=== PATIENT | female | born 1975 | race Caucasian/White ===

== ENCOUNTER 2022-10-27 23:30 | Emergency (ER) | payer OTHER ==
[~2022-10-27] VITALS: Ht 177.8 cm; Wt 74.8 kg
[2022-10-28] MEDS ORDERED: ONDANSETRON HCL/PF 4 MG/2 ML VIAL IVP ONE (00:30)
[2022-10-28] MEDS ORDERED: IV NS 0.9% 500 ML BAG IV ONE (00:30)
[2022-10-28] MEDS ORDERED: MORPHINE SULFATE INJ 2 MG/ML DISP.SYRIN IV ONE (00:30)
[2022-10-28] MEDS ORDERED: MORPHINE SULFATE INJ 4 MG/ML DISP.SYRIN ONE (00:38)
[2022-10-28] MEDS ORDERED: ONDANSETRON HCL/PF 4 MG/2 ML VIAL ONE (00:38)
--- NOTE | 2022-10-28 01:00 | NUR ---
Pt is noted came from Home C/O RUQ Abdominal due to S/P Liver BX Yesterday with history off METS Breast CA. Pt care continue with MD at bedside.
--- NOTE | 2022-10-28 01:10 | NUR ---
Pt care continue as she is been Medicated as ordered after Lab work done.
[2022-10-28 01:15] LABS: BASOPHILS % (AUTO) 0.3 % (0.0-2.0); HEMATOCRIT 38 % (33-45); HEMOGLOBIN 12.4 g/dL (11.5-14.8); LYMPHOCYTES % (AUTO) 9.9 % (20.0-44.0); MEAN CORPUSCULAR HGB CONC 33 g/dl (31.0-36.0); MEAN CORPUSCULAR VOLUME 99 fL (82-100); MONOCYTES % (AUTO) 10.1 % (2.0-12.0); NEUTROPHILS # (AUTO) 7.6 K/uL (1.8-8.9); NEUTROPHILS % (AUTO) 78.7 % (43.0-81.0); PLATELET COUNT (AUTO) 241 K/uL (150-450); RED BLOOD CELL COUNT(AUTO) 3.83 MIL/uL (4.0-5.2); WHITE BLOOD COUNT (AUTO) 9.6 K/uL (4.3-11.0)
[2022-10-28 01:25] LABS: CALCIUM, SERUM 9.9 mg/dL (8.5-10.1); CARBON DIOXIDE 24 mmol/L (21-32); CHLORIDE 102 mmol/L (98-107); CREATININE 0.8 mg/dL (0.6-1.3); GLUCOSE 125 mg/dL (74-106); POTASSIUM 3.7 mmol/L (3.5-5.1); SODIUM SERUM 135 mmol/L (136-145); UREA NITROGEN, BLOOD 9 mg/dL (7-18)
[2022-10-28 01:32] LABS: ALANINE AMINOTRANSFERASE 75 U/L (12-78); ALBUMIN 4.1 g/dL (3.4-5.0); ALKALINE PHOSPHATASE 118 U/L (46-116); ASPARTATE AMINOTRANSFERASE 67 U/L (15-37); BILIRUBIN,DIRECT 0.2 mg/dL (0.0-0.2); BILIRUBIN,TOTAL 0.7 mg/dL (0.2-1.0); LIPASE 141 U/L (73-393); TOTAL PROTEIN, SERUM 8.3 g/dL (6.4-8.2)
--- NOTE | 2022-10-28 02:30 | NUR ---
Pt is noted off the unit to CT. Pt care continue.
--- NOTE | 2022-10-28 03:20 | NUR ---
Pty is noted back from CT. Pt care continue as she is been monitor closely
--- NOTE | 2022-10-28 04:22 | NUR ---
Pt is noted off the unit as she is been discharge to home with all discharge instructions given with no S/S off distress or C/O Pain.
[2022-10-28 04:23] VITALS: BP 119/72
== END 2022-10-28 04:24 | disposition home or self-care (01) ==
LOC: ER 23:34
DX: R10.11 Right upper quadrant pain (principal); G89.18 Other acute postprocedural pain; Z60.2 Problems related to living alone
CPT/HCPCS: 99285; 74176; 96374; 76705; 96361; 96375; 93005; 85025; 80048; 83690; 80076; 36415; 84484 ×2; 85730; J2270; J2405; J7030

== ENCOUNTER 2024-07-01 12:21 | Emergency (ER) | payer OTHER ==
[~2024-07-01] VITALS: Ht 177.8 cm; Wt 84.8 kg
[2024-07-01] MEDS ORDERED: CT SWABBABLE VALVE TRANS SET 1 EA INFUS.SET MC ONE (12:38)
[2024-07-01] MEDS ORDERED: IV NS 0.9% 250 ML IV ONE (12:38)
[2024-07-01] MEDS ORDERED: IOHEXOL-350 100 ML VIAL IV ONE (12:38)
[2024-07-01 12:48] LABS: EOSINOPHILS # (AUTO) 0.2 K/uL (0.0-0.7); EOSINOPHILS % (AUTO) 6.4 % (0.0-6.0); HEMATOCRIT 29 % (33-45); HEMOGLOBIN 9.6 g/dL (11.5-14.8); LYMPHOCYTES # (AUTO) 0.9 K/uL (0.8-4.8); LYMPHOCYTES % (AUTO) 29.1 % (20.0-44.0); MEAN CORPUSCULAR HEMOGLOBIN 29 PG (26.0-33.0); MEAN CORPUSCULAR HGB CONC 33 g/dl (31.0-36.0); MEAN CORPUSCULAR VOLUME 88 fL (82-100); MONOCYTES # (AUTO) 0.2 K/uL (0.1-1.30); MONOCYTES % (AUTO) 6.1 % (2.0-12.0); NEUTROPHILS # (AUTO) 1.8 K/uL (1.8-8.9); NEUTROPHILS % (AUTO) 57.4 % (43.0-81.0); PLATELET COUNT (AUTO) 227 K/uL (150-450); RED BLOOD CELL COUNT(AUTO) 3.28 MIL/uL (4.0-5.2); RED CELL DISTRIBUTION WIDTH 20.2 % (11.5-15.0); WHITE BLOOD COUNT (AUTO) 3.1 K/uL (4.3-11.0)
[2024-07-01 12:50] LABS: CALCIUM, SERUM 9.2 mg/dL (8.5-10.1); CREATININE 0.8 mg/dL (0.6-1.3); POTASSIUM 4.7 mmol/L (3.5-5.1)
[2024-07-01 12:55] LABS: INR 1.04 (0.91-1.10); PARTIAL THROMBOPLASTIN TIME 25.8 SEC (24.3-34.3)
[2024-07-01 12:56] LABS: ALBUMIN 3.8 g/dL (3.4-5.0); BILIRUBIN,DIRECT 0.2 mg/dL (0.0-0.2); BILIRUBIN,TOTAL 0.6 mg/dL (0.2-1.0); TOTAL PROTEIN, SERUM 7.2 g/dL (6.4-8.2)
[2024-07-01] MEDS: LEVETIRACETAM (500MG) 1,000 MG in IV NS 0.9% 90 ML IV SCH (13:22)
[2024-07-01] MEDS: dexaMETHasone SOD PHOSPHATE 10 MG/ML VIAL IV ONE (13:22)
[2024-07-01 14:44] LABS: APPEARANCE,URINE CLEAR (CLEAR); BILIRUBIN,URINE NEGATIVE (NEGATIVE); BLOOD, URINE NEGATIVE Ery/uL (NEGATIVE); COLOR,URINE YELLOW (YELLOW); KETONES,URINE NEGATIVE (NEGATIVE); LEUKOCYTE ESTERASE ,URINE NEGATIVE (NEGATIVE); NITRITE, URINE NEGATIVE (NEGATIVE); PROTEIN,URINE NEGATIVE (NEGATIVE); UGLUCOSE NEGATIVE (NEGATIVE); UROBILINOGEN,URINE 0.2 EU/dL (0.2)
[2024-07-01 15:00] LABS: AMPHETAMINE, URINE NEGATIVE (NEGATIVE); BARBITURATE, URINE NEGATIVE (NEGATIVE); BENZODIAZEPINE, URINE NEGATIVE (NEGATIVE); COCCAINE, URINE NEGATIVE (NEGATIVE); OPIATE, URINE NEGATIVE (NEGATIVE); PHENCYCLIDINE SCREEN,URINE NEGATIVE (NEGATIVE)
[2024-07-01 15:08] LABS: CANNABINOID, URINE NEGATIVE (NEGATIVE)
[2024-07-02] MEDS ORDERED: ALPRAZOLAM 0.25 MG TABLET ONE (00:24)
[2024-07-02] MEDS: ALPRAZOLAM 0.25 MG TABLET PO ONE (00:28)
[2024-07-02 09:07] VITALS: BP 122/70; TEMP 98; O2SAT 97
== END 2024-07-02 09:07 | disposition left against medical advice (07) ==
LOC: ER 12:23
DX: C50.919 Malignant neoplasm of unspecified site of unspecified female breast (principal); G45.9 Transient cerebral ischemic attack, unspecified; Z85.3 Personal history of malignant neoplasm of breast; Z20.822 Contact with and (suspected) exposure to COVID-19
CPT/HCPCS: 99291; 70498; 87426; 93005; 71045; 70496; 85025; 80048; 80076; 36415; 85730; 86850; 82962; 80307; 96365; 96375; 70450; 81003; J1100; J7030; J7050; J1953; Q9967

== ENCOUNTER 2025-01-05 17:08 | Inpatient (IN) | payer OTHER ==
[~2025-01-05] VITALS: Ht 177.8 cm; Wt 82.6 kg
[2025-01-05] MEDS: IV NS 0.9% 1,000 ML BAG IV ONE ×2 (18:00→18:23)
[2025-01-05] MEDS ORDERED: ONDANSETRON HCL/PF 4 MG/2 ML VIAL ONE (18:02)
[2025-01-05] MEDS ORDERED: MORPHINE SULFATE INJ 4 MG/ML DISP.SYRIN ONE (18:02)
[2025-01-05] MEDS ORDERED: IBUPROFEN 600 MG TABLET ONE ×2 (18:02→18:16)
[2025-01-05] MEDS: MORPHINE SULFATE INJ 2 MG/ML DISP.SYRIN IV ONE (18:05)
[2025-01-05] MEDS: ONDANSETRON HCL/PF 4 MG/2 ML VIAL IVP ONE (18:24)
[2025-01-05] MEDS: IBUPROFEN 600 MG TABLET PO ONE (18:24)
[2025-01-05] MEDS: ACETAMINOPHEN ES 500 MG TABLET PO ONE (18:25)
[2025-01-05] MEDS ORDERED: KETOROLAC TROMETHAMINE 15 MG/ML VIAL ONE (18:28)
[2025-01-05 18:30] LABS: CALCIUM, SERUM 8.4 mg/dL (8.5-10.1); CREATININE 1.2 mg/dL (0.6-1.3); SODIUM SERUM 123.0 mmol/L (136-145); UREA NITROGEN, BLOOD 20.0 mg/dL (7-18)
[2025-01-05] MEDS: KETOROLAC TROMETHAMINE 15 MG/ML VIAL IV ONE (18:35)
[2025-01-05 18:36] LABS: ASPARTATE AMINOTRANSFERASE 213.0 U/L (15-37); TOTAL PROTEIN, SERUM 6.7 g/dL (6.4-8.2)
[2025-01-05 18:52] LABS: PLATELET COUNT (AUTO) 150 K/uL (150-450); RED BLOOD CELL COUNT(AUTO) 2.41 MIL/uL (4.0-5.2); RED CELL DISTRIBUTION WIDTH 19.5 % (11.5-15.0)
[2025-01-05 18:54] LABS: LACTIC ACID 3.0 mmol/L (0.4-2.0)
[2025-01-05 18:55] LABS: INR 1.21 (0.91-1.10)
[2025-01-05 18:55] LABS: WHITE BLOOD COUNT (AUTO) 0.5 K/uL (4.3-11.0)
[2025-01-05] MEDS ORDERED: MAGN200T4 PO (19:39)
[2025-01-05] MEDS ORDERED: CHOL100062 PO (19:39)
[2025-01-05] MEDS ORDERED: BLOO-668 IN (19:39)
[2025-01-05] MEDS ORDERED: MEMA5TAB42 PO (19:39)
[2025-01-05] MEDS ORDERED: L. A1TAB10 PO (19:39)
[2025-01-05] MEDS ORDERED: LOPE2TAB25 PO (19:39)
[2025-01-05] MEDS ORDERED: ZINC220C6 PO (19:39)
[2025-01-05] MEDS ORDERED: LIDO1KIT TP (19:39)
[2025-01-05] MEDS ORDERED: OLAN2.5T3 PO ×2 (19:39)
[2025-01-05] MEDS ORDERED: CIME400T PO (19:39)
[2025-01-05] MEDS ORDERED: [UNRECOGNIZED DRUG - OTHER] PO (19:39)
[2025-01-05] MEDS ORDERED: POLY17PO4 PO (19:39)
[2025-01-05] MEDS ORDERED: LACO100T2 PO (19:39)
[2025-01-05] MEDS ORDERED: ESCI5TAB PO (19:39)
[2025-01-05] MEDS ORDERED: ONDA8TAB65 PO (19:39)
[2025-01-05] MEDS ORDERED: CETI10TA14 PO (19:39)
[2025-01-05] MEDS ORDERED: LEVE100023 PO (19:39)
[2025-01-05] MEDS ORDERED: LEVOFLOXACIN 750 MG /D5W 150ML 150 ML IV ONE (19:55)
[2025-01-05] MEDS ORDERED: MAG HYDROX/AL HYDROX/SIMETH 30 ML UDC PO PRN (20:00)
[2025-01-05] MEDS ORDERED: LEVOFLOXACIN 750 MG /D5W 150ML 750 MG in PREMIX 1 EA IV ONE (20:00)
[2025-01-05] MEDS ORDERED: ONDANSETRON HCL/PF 4 MG/2 ML VIAL IVP PRN (20:00)
[2025-01-05] MEDS ORDERED: Z GUARD REMEDY 4 OZ OINT TP PRN (20:00)
[2025-01-05] MEDS ORDERED: DOSING PER PHARMACY-VANCOMYCIN IV XX PRN (20:00)
[2025-01-05] MEDS ORDERED: MAGNESIUM HYDROXIDE 30 ML UDC PO PRN (20:00)
[2025-01-05] MEDS ORDERED: LEVOFLOXACIN 750 MG /D5W 150ML 750 MG in PREMIX 1 EA IV SCH (20:00)
[2025-01-05] MEDS: LEVOFLOXACIN 750 MG /D5W 150ML PIGGYBACK IV ONE (20:06)
[2025-01-05] MEDS ORDERED: FLUCONAZOLE IN NS 100 ML IV ONE (20:31)
[2025-01-05] MEDS: FLUCONAZOLE IN NS 100 MG in PREMIX 1 EA IV SCH (20:40)
[2025-01-05 21:00] VITALS: BP 132/71; TEMP 98.2; O2SAT 100
[2025-01-05] MEDS ORDERED: FUROSEMIDE 20 MG/2 ML VIAL IV SCH (21:00)
[2025-01-05] MEDS ORDERED: TEMAZEPAM 7.5 MG CAPSULE PO PRN (21:00)
[2025-01-05] MEDS: PANTOPRAZOLE 40 MG VIAL IV SCH (22:13)
[2025-01-05] MEDS: VANCOMYCIN 1 GM /D5W 250 ML PB IV ONE (22:27)
[2025-01-05] MEDS: VANCOMYCIN HCL 1.25 GM in IV D5W 250 ML IV ONE (22:40)
[2025-01-05 22:44] LABS: LYMPHOCYTES % (MANUAL) 10 % (16-48); MONOCYTES % (MANUAL) 12 % (0-11.0); MYELOCYTES % 1 % (0-0); NEUTROPHILS % (MANUAL) 2 (42-76); PLATELET ESTIMATE ADEQUATE
[2025-01-05] MEDS: HYDROMORPHONE 1 MG/1 ML DISP.SYRIN IV PRN (22:57)
[2025-01-05] MEDS ORDERED: VANCOMYCIN 500 MG VIAL ONE (23:11)
[2025-01-06] VITALS (7 sets, daily range): BP systolic 116–155; BP diastolic 62–92; TEMP 97.7–99.3; O2SAT 92–100
[2025-01-06] MEDS ORDERED: ONDANSETRON HCL/PF 4 MG/2 ML VIAL IVP PRN
[2025-01-06] MEDS ORDERED: LOPERAMIDE HCL (2 MG CAP) 2 MG CAPSULE PO PRN (01:30)
[2025-01-06 08:04] LABS: PLATELET COUNT (AUTO) 159 K/uL (150-450); RED BLOOD CELL COUNT(AUTO) 2.28 MIL/uL (4.0-5.2); RED CELL DISTRIBUTION WIDTH 19.0 % (11.5-15.0)
[2025-01-06 08:12] LABS: WHITE BLOOD COUNT (AUTO) 0.7 K/uL (4.3-11.0)
[2025-01-06 08:42] LABS: PLATELET ESTIMATE ADEQUATE
[2025-01-06 09:09] LABS: CALCIUM, SERUM 8.0 mg/dL (8.5-10.1); CREATININE 1.2 mg/dL (0.6-1.3); PHOSPHORUS 3.0 mg/dL (2.5-4.9); SODIUM SERUM 124.0 mmol/L (136-145); UREA NITROGEN, BLOOD 19.0 mg/dL (7-18)
[2025-01-06] MEDS: cetrizine 10 MG TABLET PO SCH (09:14)
[2025-01-06] MEDS: ESCITALOPRAM OXALATE (10 MG) 10 MG TABLET PO SCH (09:14)
[2025-01-06] MEDS: FUROSEMIDE 40 MG/4 ML VIAL IV SCH (09:14)
[2025-01-06] MEDS: FAMOTIDINE (20 MG) 20 MG TABLET PO SCH (09:15)
[2025-01-06] MEDS: ACIDOPHILUS/BULGARICUS 1 EACH TAB.CHEW PO SCH (09:15)
[2025-01-06] MEDS: LEVETIRACETAM (250 MG) 250 MG TABLET PO SCH ×2 (09:15→17:19)
[2025-01-06] MEDS: MEMANTINE HCL 5 MG TABLET PO SCH (09:15)
[2025-01-06] MEDS: POLYETHYLENE GLYCOL 3350 17 GM POWD.PACK PO SCH (09:15)
[2025-01-06] MEDS: OLANZAPINE 2.5 MG TABLET PO SCH (09:15)
[2025-01-06] MEDS: VANCOMYCIN 500 MG in IV D5W 100ml IV ONE (09:44)
[2025-01-06] MEDS ORDERED: IOHEXOL-300 100 ML VIAL IV ONE (11:38)
[2025-01-06] MEDS ORDERED: IV NS 0.9% 250 ML IV ONE (11:38)
[2025-01-06 13:35] LABS: PREGNANCY TEST URINE QUAL NEGATIVE (NEGATIVE)
[2025-01-06] MEDS: LACOSAMIDE 50 MG TABLET PO SCH ×2 (16:55→17:19)
[2025-01-06] MEDS: LEVOFLOXACIN 750 MG /D5W 150ML 750 MG in PREMIX 1 EA IV SCH (19:35)
[2025-01-06] MEDS: NYSTATIN (PYXIS) 500,000 UNIT/5 ML ORAL.SUSP PO SCH (21:09)
[2025-01-06] MEDS: FLUCONAZOLE IN NS 100 MG in PREMIX 1 EA IV SCH (21:42)
[2025-01-06] MEDS: VANCOMYCIN 1 GM in IV D5W 250ml IV SCH (22:15)
[2025-01-07 00:24] VITALS: BP 134/86; TEMP 99; O2SAT 95
[2025-01-07] MEDS: LORAZEPAM 1 MG TABLET PO ONE (03:57)
[2025-01-07 04:04] VITALS: BP 130/73; TEMP 97.7; O2SAT 99
[2025-01-07 08:00] VITALS: BP 121/82; TEMP 98; O2SAT 96
[2025-01-07] MEDS: SODIUM CHLORIDE 1000 MG TABLET PO SCH (10:45)
[2025-01-07 11:30] VITALS: BP 154/76; TEMP 97.9; O2SAT 96
[2025-01-07] MEDS: PANTOPRAZOLE 40 MG TABLET.DR PO SCH (11:43)
[2025-01-07] MEDS ORDERED: LIDOCAINE VISCOUS 2% UD 15 ML UDC MM PRN (13:00)
[2025-01-07] MEDS ORDERED: TEMAZEPAM 15 MG CAPSULE PO PRN (13:00)
[2025-01-07] MEDS: TBO-FILGRASTIM 480 MCG/0.8 ML ML SQ SCH (14:05)
[2025-01-07 16:00] VITALS: BP 137/80; TEMP 98.6; O2SAT 98
[2025-01-07 18:03] LABS: PLATELET COUNT (AUTO) 217 K/uL (150-450); RED BLOOD CELL COUNT(AUTO) 2.29 MIL/uL (4.0-5.2); RED CELL DISTRIBUTION WIDTH 19.3 % (11.5-15.0)
[2025-01-07 18:07] LABS: WHITE BLOOD COUNT (AUTO) 1.1 K/uL (4.3-11.0)
[2025-01-07 18:12] LABS: RHEUMATOID FACTOR SCREEN NEGATIVE (NEGATIVE)
[2025-01-07 18:27] LABS: CALCIUM, SERUM 7.9 mg/dL (8.5-10.1); CREATININE 1.6 mg/dL (0.6-1.3); SODIUM SERUM 121.0 mmol/L (136-145); UREA NITROGEN, BLOOD 26.0 mg/dL (7-18)
[2025-01-07 18:34] LABS: ASPARTATE AMINOTRANSFERASE 123.0 U/L (15-37); TOTAL PROTEIN, SERUM 6.2 g/dL (6.4-8.2)
[2025-01-07 18:39] LABS: IRON, SERUM 18.0 ug/dl (50-175)
[2025-01-07 18:59] LABS: INR 1.27 (0.91-1.10)
[2025-01-07 19:34] LABS: LYMPHOCYTES % (MANUAL) 49 % (16-48); METAMYELOCYTES % 7 % (0-0); MONOCYTES % (MANUAL) 12 % (0-11.0); MYELOCYTES % 1 % (0-0); NEUTROPHILS % (MANUAL) 21 (42-76); REACTIVE LYMPHOCYTES 10 % (0-0)
[2025-01-07 19:35] LABS: PLATELET ESTIMATE ADEQUATE
[2025-01-07 20:25] VITALS: BP 109/67; TEMP 99; O2SAT 98
[2025-01-07] MEDS: VANCOMYCIN 750 MG in IV D5W 250 ML IV SCH (23:13)
[2025-01-07 23:19] LABS: HIV-1/2 ANTIBODY NON REACTIVE (NONREACTIVE)
[2025-01-08 02:32] LABS: FIBRINOGEN ACTIVITY 459.0 Mg/dL (213-485)
[2025-01-08 04:18] VITALS: BP 117/64; TEMP 99; O2SAT 99
[2025-01-08 07:27] LABS: CALCIUM, SERUM 8.4 mg/dL (8.5-10.1); CREATININE 1.9 mg/dL (0.6-1.3); PHOSPHORUS 2.8 mg/dL (2.5-4.9); SODIUM SERUM 125.0 mmol/L (136-145); UREA NITROGEN, BLOOD 28.0 mg/dL (7-18)
[2025-01-08 07:46] LABS: APPEARANCE,URINE CLEAR (CLEAR); BLOOD, URINE 1+ Ery/uL (NEGATIVE); LEUKOCYTE ESTERASE ,URINE NEGATIVE (NEGATIVE); NITRITE, URINE NEGATIVE (NEGATIVE); UGLUCOSE NEGATIVE (NEGATIVE)
[2025-01-08 07:46] LABS: PLATELET COUNT (AUTO) 212 K/uL (150-450); RED BLOOD CELL COUNT(AUTO) 2.32 MIL/uL (4.0-5.2); RED CELL DISTRIBUTION WIDTH 20.8 % (11.5-15.0)
[2025-01-08 07:55] LABS: CREATININE, URINE 79.5 MG/DL (30.0-125.0); URINE SODIUM, RANDOM < 5 mmol/l (40-220); URINE TOTAL PROTEIN 65.2 mg/dL (0-11.9)
[2025-01-08 08:00] VITALS: BP 119/55; TEMP 99; O2SAT 100
[2025-01-08 08:22] LABS: WHITE BLOOD COUNT (AUTO) 1.4 K/uL (4.3-11.0)
[2025-01-08 08:46] LABS: ADD URINE CULTURE NO; COARSE GRANULAR CASTS,URINE Rare /LPF (None Seen); SQUAMOUS EPITHELIAL CELL,UR 0-2 /HPF (None Seen)
[2025-01-08 09:17] LABS: INR 1.32 (0.91-1.10)
[2025-01-08] MEDS: ALBUMIN 25% 25 GM in PREMIX 1 EA IV SCH (10:52)
[2025-01-08 12:00] VITALS: BP 121/53; TEMP 98.2; O2SAT 96
[2025-01-08 12:20] LABS: FIBRINOGEN ACTIVITY 486.0 Mg/dL (213-485)
[2025-01-08 13:16] LABS: EOSINOPHIL,URINE None Seen
[2025-01-08 14:33] LABS: LYMPHOCYTES % (MANUAL) 16 % (16-48); MONOCYTES % (MANUAL) 71 % (0-11.0); NEUTROPHILS % (MANUAL) 13 (42-76); PLATELET ESTIMATE ADEQUATE
[2025-01-08 16:00] VITALS: BP 139/64; TEMP 98.1; O2SAT 99
[2025-01-08 20:00] VITALS: BP 145/78; TEMP 98.1; O2SAT 99
[2025-01-08] MEDS: LEVETIRACETAM (500MG) 750 MG in IV NS 0.9% 100 ML IV SCH (21:03)
[2025-01-09] VITALS: BP 153/84; TEMP 98.8; O2SAT 96
[2025-01-09 04:00] VITALS: BP 146/79; TEMP 98.5; O2SAT 97
[2025-01-09 04:07] LABS: HEPATITIS B SURFACE AB (QUAL) Reactive (.)
[2025-01-09 05:08] LABS: CANCER AG, 15-3 174.0 U/mL (0.0-25.0); CARCINOEMBRYONIC ANTIGEN (CEA) 1517.0 ng/mL (0.0-4.7)
[2025-01-09 07:07] LABS: IMMUNOGLOBULIN A, SERUM 211 mg/dL (87-352); IMMUNOGLOBULIN M, SERUM 37 mg/dL (26-217)
[2025-01-09 07:30] VITALS: BP 146/64; TEMP 98.2; O2SAT 96
[2025-01-09 07:37] LABS: PLATELET COUNT (AUTO) 189 K/uL (150-450); RED CELL DISTRIBUTION WIDTH 19.6 % (11.5-15.0); WHITE BLOOD COUNT (AUTO) 2.8 K/uL (4.3-11.0)
[2025-01-09 08:07] LABS: FOLIC ACID 4.5 ng/mL (>3.0); FREE KAPPA LT CHAINS SERUM 22.5 mg/L (3.3-19.4); FREE LAMBDA LT CHAIN SERUM 18.8 mg/L (5.7-26.3); KAPPA/LAMBDA RATIO SERUM 1.20 (0.26-1.65)
[2025-01-09 08:22] LABS: ASPARTATE AMINOTRANSFERASE 74.0 U/L (15-37); CALCIUM, SERUM 7.7 mg/dL (8.5-10.1); CREATININE 1.7 mg/dL (0.6-1.3); PHOSPHORUS 2.6 mg/dL (2.5-4.9); SODIUM SERUM 127.0 mmol/L (136-145); TOTAL PROTEIN, SERUM 5.9 g/dL (6.4-8.2); UREA NITROGEN, BLOOD 27.0 mg/dL (7-18)
[2025-01-09 08:35] LABS: RED BLOOD CELL COUNT(AUTO) 1.98 MIL/uL (4.0-5.2)
[2025-01-09] MEDS: LEVETIRACETAM SOL (5 ML) 100 MG/ML UDC PO SCH (10:46)
[2025-01-09 12:11] LABS: LYMPHOCYTES % (MANUAL) 19 % (16-48); MONOCYTES % (MANUAL) 34 % (0-11.0); NEUTROPHILS % (MANUAL) 47 (42-76); PLATELET ESTIMATE ADEQUATE
[2025-01-09 13:08] LABS: *ANA ANTI-CENTROMERE B AB <0.2 AI (0.0-0.9); *ANA ANTI-DNA(DS) AB, QN <1 IU/mL (0-9); *ANA ANTI-JO-1 <0.2 AI (0.0-0.9); *ANA ANTICHROMATIN ANTIBODY <0.2 AI (0.0-0.9); *ANA RNP ANTIBODIES 0.3 AI (0.0-0.9); *ANA SJOGREN'S ANTI-SS-A <0.2 AI (0.0-0.9); *ANA SJOGREN'S ANTI-SS-B <0.2 AI (0.0-0.9); *ANAANTI-SCLERODERMA-70 AB <0.2 AI (0.0-0.9); *ANASMITH AB <0.2 AI (0.0-0.9)
[2025-01-09] MEDS: ALBUMIN 25% 25 GM in PREMIX 1 EA IV SCH (13:14)
[2025-01-09] MEDS: VANCOMYCIN 750 MG in IV D5W 250 ML IV SCH (13:33)
[2025-01-09 16:00] VITALS: BP 81/68; TEMP 99; O2SAT 98
[2025-01-09] MEDS: ACETAMINOPHEN 325 MG TABLET PO ONE (17:29)
[2025-01-09 19:00] VITALS: TEMP 99
[2025-01-09] MEDS: FLUCONAZOLE (100 MG) 100 MG TABLET PO SCH (21:00)
== END 2025-01-09 21:30 | disposition short-term general hospital (02) | DRG 871 ==
LOC: ER 17:08 → TELE 20:13
PROVIDERS: ADMIT Registered Nurse Psychiatric/Mental Health; ATTEND Nurse Practitioner Family
DX: A41.9 Sepsis, unspecified organism (principal); J15.9 Unspecified bacterial pneumonia; K76.7 Hepatorenal syndrome; E44.1 Mild protein-calorie malnutrition; D68.59 Other primary thrombophilia; E87.20 Acidosis, unspecified; B37.0 Candidal stomatitis; R18.8 Other ascites; C79.31 Secondary malignant neoplasm of brain; C78.7 Secondary malignant neoplasm of liver and intrahepatic bile duct; C79.51 Secondary malignant neoplasm of bone; E22.2 Syndrome of inappropriate secretion of antidiuretic hormone; B37.81 Candidal esophagitis; N17.9 Acute kidney failure, unspecified; R65.20 Severe sepsis without septic shock; D53.9 Nutritional anemia, unspecified; R62.7 Adult failure to thrive; Z88.0 Allergy status to penicillin; Z66 Do not resuscitate; R74.01 Elevation of levels of liver transaminase levels; E88.09 Other disorders of plasma-protein metabolism, not elsewhere classified; E80.6 Other disorders of bilirubin metabolism; R53.1 Weakness; M89.8X9 Other specified disorders of bone, unspecified site; K74.60 Unspecified cirrhosis of liver; G40.909 Epilepsy, unspecified, not intractable, without status epilepticus; T45.1X5A Adverse effect of antineoplastic and immunosuppressive drugs, initial encounter; Y92.009 Unspecified place in unspecified non-institutional (private) residence as the place of occurrence of the external cause; E87.70 Fluid overload, unspecified; C50.912 Malignant neoplasm of unspecified site of left female breast; C50.911 Malignant neoplasm of unspecified site of right female breast; Z79.60 Long term (current) use of unspecified immunomodulators and immunosuppressants; Z68.26 Body mass index [BMI] 26.0-26.9, adult; D70.1 Agranulocytosis secondary to cancer chemotherapy; Z53.29 Procedure and treatment not carried out because of patient's decision for other reasons
CPT/HCPCS: 36415; 70450-TC; 71045-TC; 71260-TC; 76700-TC; 80048-TC; 80053-TC; 80076-TC; 80202-TC; 81001; 82378; 82570-TC; 82607-TC; 82728-TC; 82784; 83540-TC; 83605-TC; 83690-TC; 83735-TC; 83935-TC; 84100-TC; 84155; 84165; 84300-TC; 84443-TC; 84550-TC; 84703-TC; 85027-TC; 85396; 85730-TC; 86225; 86235; 86300; 86334; 86431-TC; 86706; 86803; 86850-TC; 87040-TC; 87086-TC; 87340; 87806; A4216; A4223; G0378; J1171; J1200; J1447; J1450; J1885; J1938; J1953; J1956; J2270; J2405; J2470; J3373; J3374; J7030; J7040; J7050; J7060; P9016; P9047; Q9967